=== PATIENT | male | born 1945 | race Caucasian/White ===

== ENCOUNTER 2022-01-12 13:17 | Outpatient (CLI) | payer MEDICARE, BC ==
[2022-01-12] MEDS ORDERED: Magnevist 469MG/ML 20 ML VIAL ONE (13:55)
== END 2022-01-12 13:18 | disposition home or self-care (01) ==
LOC: CSHMRI 13:17
PROVIDERS: ATTEND Otolaryngology Plastic Surgery within the Head & Neck
DX: H90.3 Sensorineural hearing loss, bilateral (principal); H93.12 Tinnitus, left ear
CPT/HCPCS: 70553; 82565; A9579